=== PATIENT | male | born 1960 | race Hispanic/Latino ===

== ENCOUNTER 2021-12-24 08:58 | Emergency (ER) | payer BC ==
[2021-12-24] MEDS ORDERED: Morphine 4 MG/ML VIAL ONE (09:15)
[2021-12-24] MEDS ORDERED: Boostrix 0.5 ML (Tdap) VIAL (>/=7 yrs of age) ONE (09:15)
[2021-12-24 09:24] LABS: #Basophils 0.1 10x3/uL (0.0-0.2); #Eosinphils 0.2 10x3/uL (0.0-0.5); #Neutrophils 6.8 10x3/uL (1.5-8.4); %Basophils 0.8 % (0.0-2.0); %Eosinophils 2.2 % (0.0-6.0); %Lymphocytes 23.8 % (18.0-47.0); %Monocytes 9.3 % (0.0-10.0); %Neutrophils 63.4 % (40.0-75.0); Hemoglobin 12.1 g/dL (13.5-17.5); Mean Corpuscular HGB CONC 33.2 g/dL (32.0-36.0); Mean Corpuscular Hemoglobin 27.4 pg (27.0-33.0); Mean Corpuscular Volume 82.4 fl (81.2-95.1); Mean Platelet Volume 10.2 fl (7.4-10.4); Platelet Count 218 10x3/uL (150-450); RBC Distribution Width 15.4 % (11.5-14.5); Red Blood Cell (RBC) Count 4.42 10x6/uL (4.32-5.72); White Blood Cell (WBC) Count 10.6 10x3/uL (3.5-10.5)
[2021-12-24 09:30] LABS: ALT (SGPT) 13 U/L (8-55); AST (SGOT) 22 U/L (5-34); Alkaline Phosphatase 91 U/L (40-110); Anion Gap 16 mmol/L (10-20); BUN (Urea Nitrogen) 66 mg/dL (8.4-25.7); Bilirubin, Total 0.5 mg/dL (0.2-1.2); Calc. Creatinine Clearance 0 mL/min (70-130); Calcium 8.8 mg/dL (7.8-10.44); Carbon Dioxide 17 mmol/L (23-31); Chloride 108 mmol/L (98-107); Estimated GFR 17; Globulin 3.9 g/dL (2.4-3.5); Glucose 233 mg/dL (80-115); Potassium 4.4 mmol/L (3.5-5.1); Protein, Total 7.9 g/dL (5.8-8.1); Sodium 137 mmol/L (136-145)
[2021-12-24 09:49] LABS: PTT 31.6 sec (22.0-33.0); Prothrombin Time 11.3 sec (9.5-12.1)
[2021-12-24 10:01] LABS: SARS-CoV-2 NAA Rapid Test Not Detected (NotDetected)
[2021-12-24] MEDS ORDERED: Dextrose 50% Abboject 50 ML SYRINGE SLOW IVP PRN (10:44)
[2021-12-24] MEDS ORDERED: HumaLOG 300 UNITS/3 ML VIAL SC PRN ×2 (10:44)
[2021-12-24] MEDS ORDERED: Dextrose 5% in Water 1,000 ML IV PRN (10:44)
[2021-12-24] MEDS ORDERED: Sodium Chloride 0.9% 1,000 ML IV SCH (10:45)
[2021-12-24] MEDS ORDERED: cefTRIAXone\\ROCEPHIN 2 GM VIAL ONE (10:51)
[2021-12-24] MEDS ORDERED: Morphine 2 MG/ML VIAL SLOW IVP PRN (11:46)
[2021-12-24] MEDS ORDERED: EPINEPHrine 1 MG/ML AMP ONE (13:02)
[2021-12-24] MEDS ORDERED: Bupivacaine PF 0.5% 30 ML VIAL ONE (13:02)
[2021-12-24] MEDS ORDERED: Neomycin-Polymyxin 1 ML AMP ONE (13:03)
[2021-12-24] MEDS ORDERED: hydrALAZINE 20 MG/ML VIAL SLOW IVP PRN (13:49)
[2021-12-24] MEDS ORDERED: PROPOFOL 20 ML ONE (14:16)
[2021-12-24] MEDS ORDERED: Fentanyl 250 MCG/5 ML VIAL ONE (14:17)
[2021-12-24] MEDS ORDERED: ePHEDrine Sulfate 50 MG/10 ML VIAL ONE (15:19)
[2021-12-24] MEDS ORDERED: Ondansetron PF 4 MG/2 ML Vial ONE (15:39)
[2021-12-24] MEDS ORDERED: Metoclopramide HCl 10 MG/2 ML VIAL ONE (15:39)
[2021-12-24] MEDS ORDERED: Glycopyrrolate 0.2 MG/ML 5 ML SYRINGE ONE (15:44)
[2021-12-24] MEDS ORDERED: hydrALAZINE 20 MG/ML VIAL ONE (16:27)
== END 2021-12-24 12:42 | disposition home or self-care (01) ==
LOC: EEVIPCON 08:58 → SUATTDRO 08:58 → CSHERS 08:58
PROVIDERS: ATTEND Family Medicine
DX: S61.512A Laceration without foreign body of left wrist, initial encounter (principal); E78.5 Hyperlipidemia, unspecified; I25.10 Atherosclerotic heart disease of native coronary artery without angina pectoris; E11.9 Type 2 diabetes mellitus without complications; I10 Essential (primary) hypertension; Z79.4 Long term (current) use of insulin; Z20.822 Contact with and (suspected) exposure to COVID-19; W45.8XXA Other foreign body or object entering through skin, initial encounter
CPT/HCPCS: 36415; 80053; 84484; 85025; 85610; 85730; 86850; 86900; 86901; 90471; 90715; 93005; 96365; 96375; J0171; J0360; J0696; J2270; J2405; J2704; J2765; J3010; J7050; S0020; U0002